=== PATIENT | female | born 1990 | race African-American/Black ===

== ENCOUNTER 2017-07-04 06:40 | Inpatient (IN) | payer OTHER ==
[2017-07-04] VITALS (12 sets, daily range): BP systolic 97–136; BP diastolic 52–66; PULSE 78–115; RESP 16–20; TEMP 98–99.1; O2SAT 94–100
[~2017-07-04 06:40] MED LIST: NAPR500 PO; Z.0.NO CURRENT MEDS
[2017-07-04] MEDS ORDERED: SODIUM CHLOR 0.9% 1000 ML INJ 1,000 ML IV ONE ×2 (07:16→18:00)
--- NOTE | 2017-07-04 07:27 | PD ---
HPI Chief Complaint: General Weakness Time Seen by Provider: 07:16 Travel History International Travel<30 days: No Contact w/Intl Traveler<30days: No Traveled to known affect area: No History of Present Illness HPI This is a 27-year-old female with no significant past medical history, presents today with complaints of exertional shortness of breath and fatigue. Patient states that she gets this when she has her period. She denies any chest pain, chest pressure. She reports a near syncopal episode 36 hours ago. The patient has no previous history of syncope or near syncope. Mom states that she in the past suffered from anemia. She states that her daughter looks more pale than she hasn't passed. Patient reports that she is not sexually active and has started her menstrual cycle today. There are no other complaints time my examination. PFSH Past Medical History Medical History: Denies Significant Hx ?: Not LMP: 07/16 Past Surgical History Surgical History: No Previous Surgery Social History Alcohol Use: Yes (SOCIAL ) Tobacco Use: No Substance Use: No Allergies-Medications (Allergen,Severity, Reaction): Coded Allergies: No Known Allergies (Verified , 07/04/17) Reported Meds & Prescriptions Reported Meds & Active Scripts Active No Active Prescriptions or Reported Medications Review of Systems Except as stated in HPI: all other systems reviewed are Neg General / Constitutional: No: Fever, Chills HENT: No: Headaches, Neck Pain Cardiovascular: No: Chest Pain or Discomfort, Palpitations Respiratory: Positive: Shortness of Breath (exertional), No: Cough Gastrointestinal: No: Nausea, Vomiting, Abdominal Pain Genitourinary: Positive: Vaginal Bleeding (patient states she started her menstrual cycle), No: Frequency, Dysuria Musculoskeletal: Positive: Weakness, No: Pain Neurologic: Positive: Weakness, Syncope, No: Dizziness, Ataxia, Headache (near syncopal 36 hours ago), Change in Mentation Physical Exam Narrative GENERAL: Well-developed well nourished female in no acute respiratory distress. SKIN: Focused skin assessment warm/dry. HEAD: Atraumatic. Normocephalic. EYES: No scleral icterus. No injection or drainage. Pale conjunctiva. ENT: No nasal bleeding or discharge. Mucous membranes pale and moist. NECK: Trachea midline. Supple. CARDIOVASCULAR: Tachycardic with a rate in the low 100s. No murmur appreciated. RESPIRATORY: No accessory muscle use. Clear to auscultation. Breath sounds equal bilaterally. GASTROINTESTINAL: Abdomen soft, non-tender, nondistended. MUSCULOSKELETAL: No obvious deformities. No clubbing. No edema. NEUROLOGICAL: Awake and alert. No obvious cranial nerve deficits. Motor grossly within normal limits. Normal speech. PSYCHIATRIC: Appropriate mood and affect; insight and judgment normal. Data Data Last Documented VS Vital Signs Date Time Temp Pulse Resp B/P (MAP) Pulse Ox O2 Delivery O2 Flow Rate FiO2 07/04/17 08:34 96 18 110/57 (74) 96 Room Air 07/04/17 06:40 99.1 Orders Orders Electrocardiogram (07/04/17 07:16) Ed Urine Pregnancytest Poc (07/04/17 07:16) Complete Blood Count With Diff (07/04/17 07:16) Comprehensive Metabolic Panel (07/04/17 07:16) Urinalysis - C+S If Indicated (07/04/17 07:16) Ecg Monitoring (07/04/17 07:16) Iv Access Insert/Monitor (07/04/17 07:16) Oximetry (07/04/17 07:16) Sodium Chloride 0.9% Flush (Ns Flush) (07/04/17 07:30) Sodium Chlor 0.9% 1000 Ml Inj (Ns 1000 M (07/04/17 07:16) Urine Culture (07/04/17 07:20) Type And Screen (07/04/17 08:22) Red Blood Cells (Rbc) (07/04/17 08:22) Blood Product Administration (07/04/17 08:22) Sodium Chlor 0.9% 250 Ml Inj (Ns 250 Ml (07/04/17 08:30) Code Status (07/04/17 09:03) Vital Signs (Adult) Q4H (07/04/17 09:03) Neuro Checks Q4H (07/04/17 09:03) Activity Oob Ad Donna (07/04/17 09:03) Intake + Output FIDELIA.QSHIFT (07/04/17 09:03) Diet Regular Basic (07/04/17 Breakfast) Sodium Chloride 0.9% Flush (Ns Flush) (07/04/17 09:15) Sodium Chloride 0.9% Flush (Ns Flush) (07/04/17 21:00) Acetaminophen (Tylenol) (07/04/17 09:15) Ondansetron Inj (Zofran Inj) (07/04/17 09:15) Case Management Consult (07/04/17 09:03) Naloxone Inj (Narcan Inj) (07/04/17 09:15) Docusate Sodium-Senna (Ledy-Colace) (07/04/17 21:00) Magnesium Hydroxide Liq (Milk Of Magnesi (07/04/17 09:15) Sennosides (Senokot) (07/04/17 09:15) Bisacodyl Supp (Dulcolax Supp) (07/04/17 09:15) Lactulose Liq (Lactulose Liq) (07/04/17 09:15) Admit To Inpatient (07/04/17 ) Inpatient Certification (07/04/17 ) Hemoglobin (Hgb) (07/04/17 13:08) Sodium Chlor 0.9% 1000 Ml Inj (Ns 1000 M (07/04/17 09:30) ^ Other Nursing Orders (07/04/17 09:17) Estrogens Conjugated (Premarin) (07/04/17 09:30) Us Pelvis Comp [employer]/Non-Preg (07/04/17 ) Admit Order (Ed Use Only) (07/04/17 10:03) Labs Laboratory Tests Test 07/04/17 07:20 07/04/17 07:25 Urine Color YELLOW Urine Turbidity HAZY Urine pH 5.5 Urine Specific [place] 1.027 Urine Protein 30 mg/dL Urine Glucose (UA) NEG mg/dL Urine Ketones TRACE mg/dL Urine Occult Blood LARGE Urine Nitrite NEG Urine Bilirubin NEG Urine Urobilinogen 2.0 MG/DL Urine Leukocyte Esterase TRACE Urine RBC /hpf Urine WBC 10 /hpf Urine Squamous Epithelial Cells 3 /hpf Urine Hyaline Casts 14 /lpf Urine Mucus MANY /lpf Microscopic Urinalysis Comment CULTURE INDICATED White Blood Count 4.4 TH/MM3 Red Blood Count 2.99 MIL/MM3 Hemoglobin 4.0 GM/DL Hematocrit 16.1 % Mean Corpuscular Volume 53.8 FL Mean Corpuscular Hemoglobin 13.5 PG Mean Corpuscular Hemoglobin Concent 25.1 % Red Cell Distribution Width 26.5 % Platelet Count 173 TH/MM3 Mean Platelet Volume 8.5 FL Neutrophils (%) (Auto) 65.2 % Lymphocytes (%) (Auto) 26.4 % Monocytes (%) (Auto) 5.9 % Eosinophils (%) (Auto) 0.6 % Basophils (%) (Auto) 1.9 % Neutrophils # (Auto) 2.9 TH/MM3 Lymphocytes # (Auto) 1.2 TH/MM3 Monocytes # (Auto) 0.3 TH/MM3 Eosinophils # (Auto) 0.0 TH/MM3 Basophils # (Auto) 0.1 TH/MM3 CBC Comment AUTO DIFF Differential Comment AUTO DIFF CONFIRMED Tear Drop Cells 1+ Ovalocytes 1+ Acanthocytes 1+ Haptoglobin 141 MG/DL Blood Urea Nitrogen 8 MG/DL Creatinine 0.77 MG/DL Random Glucose 109 MG/DL Total Protein 7.5 GM/DL Albumin 3.6 GM/DL Calcium Level 8.6 MG/DL Alkaline Phosphatase 50 U/L Aspartate Amino Transf (AST/SGOT) 24 U/L Alanine Aminotransferase (ALT/SGPT) 12 U/L Total Bilirubin 0.8 MG/DL Sodium Level 141 MEQ/L Potassium Level 4.0 MEQ/L Chloride Level 110 MEQ/L Carbon Dioxide Level 20.2 MEQ/L Anion Gap 11 MEQ/L Estimat Glomerular Filtration Rate 107 ML/MIN Iron Level 21 MCG/DL Total Iron Binding Capacity 545 MCG/DL Percent Iron Saturation 3.9 % Ferritin 4 NG/ML Lactate Dehydrogenase 272 U/L MDM Medical Decision Making Medical Screen Exam Complete: Yes Emergency Medical Condition: Yes Differential Diagnosis Anemia versus dehydration versus metabolic derangement versus cardiac arrhythmia Narrative Course 27-year-old female presents today with complaints of exertional dizziness and shortness of breath. The patient also reports generalized weakness. The patient's hemoglobin was found to be 4. Patient made it to the hospital. She' s been typed and crossed for 2 units of blood be transfused when the blood is ready. The case was discussed with Dr. Bridges, family practice resident who is agreed for the admission. The patient will be a full admit. Diagnosis Primary Impression: Symptomatic anemia Additional Impressions: Dyspnea on exertion Weakness Admitting Information Admitting Physician Requests: Admit Scripts No Active Prescriptions or Reported Meds Nestor Hadley MD Jul 04, 2017 07:27
[2017-07-04] MEDS ORDERED: SODIUM CHLORIDE 0.9% FLUSH 10 ML FLUSH IVF PRN (07:30)
[2017-07-04 08:01] LABS: BLOOD, URINE LARGE (NEG); COMMENT (UR) CULTURE INDICATED; CULTURE IF INDICATED CULTURE INDICATED; GLUCOSE,URINE NEG (NEG); HYALINE CAST, URINE 14 /lpf (RARE); KETONE, URINE TRACE mg/dL (NEG); MUCUS URINE MANY /lpf (OCC); NITRITE,URINE NEG (NEG); PH, URINE 5.5 (5.0-8.5); SQUAMOUS EPITHELIAL CELL URINE 3 /hpf (0-5); URINE COLOR YELLOW (YELLW/STRAW)
[2017-07-04 08:05] LABS: ALT (GPT) 12 U/L (10-53); ANION GAP 11 MEQ/L (5-15); AST (GOT) 24 U/L (15-37); AUTOMATED NEUTROPHIL # 2.9 TH/MM3 (1.8-7.7); BASOPHIL # 0.1 TH/MM3 (0-0.2); BASOPHIL % 1.9 % (0.0-2.0); BICARBONATE 20.2 MEQ/L (21.0-32.0); BLOOD UREA NITROGEN 8 MG/DL (7-18); CHLORIDE 110 MEQ/L (98-107); EOSINOPHIL % 0.6 % (0.0-4.0); GLOMERULAR FILTRATION RATE 107 ML/MIN (>89); LYMPH % 26.4 % (9.0-44.0); LYMPHOCYTE # 1.2 TH/MM3 (1.0-4.8); MEAN CELL VOLUME 53.8 FL (80.0-100.0); MEAN CORPUSCULAR HEMOGLOBIN 13.5 PG (27.0-34.0); MONO % 5.9 % (0.0-8.0); NEUT % 65.2 % (16.0-70.0); PLATELET COUNT 173 TH/MM3 (150-450); RED BLOOD COUNT 2.99 MIL/MM3 (4.00-5.30); RED CELL DISTRIBUTION WIDTH 26.5 % (11.6-17.2); SODIUM (NA) 141 MEQ/L (136-145); WHITE BLOOD COUNT 4.4 TH/MM3 (4.0-11.0)
[2017-07-04 08:07] LABS: ALKALINE PHOSPHATASE 50 U/L (45-117); TOTAL BILIRUBIN ADULT 0.8 MG/DL (0.2-1.0)
[2017-07-04 08:08] LABS: HEMO FLAGS AUTO DIFF; MEAN CORPUSCULAR HGB CONC 25.1 % (32.0-36.0)
[2017-07-04 08:12] LABS: HEMATOCRIT 16.1 % (35.0-46.0)
[2017-07-04] MEDS ORDERED: SODIUM CHLOR 0.9% 250 ML INJ 250 ML IV ONE (08:30)
[2017-07-04 09:07] LABS: ACANTHOCYTES 1+ (NORMAL); OVALOCYTES 1+ (NORMAL); TEARDROP RBCS 1+ (NORMAL)
[2017-07-04 09:08] LABS: SCAN/DIFF AUTO DIFF CONFIRMED
[2017-07-04] MEDS ORDERED: ACETAMINOPHEN 325 MG TAB PO PRN (09:15)
[2017-07-04] MEDS ORDERED: MAGNESIUM HYDROXIDE SUSP 30 ML CUP PO PRN (09:15)
[2017-07-04] MEDS ORDERED: LACTULOSE SYRUP 20 GM/30 ML CUP PO PRN (09:15)
[2017-07-04] MEDS ORDERED: BISACODYL 10 MG SUPP RECTAL PRN (09:15)
[2017-07-04] MEDS ORDERED: SODIUM CHLORIDE 0.9% FLUSH 10 ML FLUSH IV FLUSH PRN (09:15)
[2017-07-04] MEDS ORDERED: ONDANSETRON HCL 4 MG/2 ML VIAL IVP PRN (09:15)
[2017-07-04] MEDS ORDERED: NALOXONE HCL 0.4 MG/ML AMP IV PUSH PRN (09:15)
[2017-07-04] MEDS ORDERED: SENNOSIDES 8.6 MG TAB PO PRN (09:15)
[2017-07-04] MEDS ORDERED: ESTROGENS CONJUGATED 1.25 MG TAB PO SCH ×2 (09:30→12:00)
--- NOTE | 2017-07-04 09:34 | HHI.HP ---
[facility] Service Family Medicine Primary Care Physician No Primary Care Physician Admission Diagnosis Diagnoses: International Travel<30 Days: No Contact w/Intl Traveler<30days: No History of Present Illness Patient is a 27-year-old female with no significant PMH who presents with shortness of breath and weakness 2-3 days. She states that she has had the symptoms on-and-off for months, in conjunction with her periods. She states she currently still feels weak but no longer short of breath. The shortness of breath only occurs with exertion. She is currently in day 4 of her current period, which she has once monthly. Menstrual periods normally last 5 days, requiring approximately 10+ overnight pads per day (changing every 2 hours). She did have a syncopal versus near syncopal episode after her shower 2 days ago and felt palpitations but felt better immediately with rest. She has no abdominal pain and states she usually has only very minimal cramping during normal periods. She decided to come in to the ED today because her mother stated she did not "look right. " CARPENTERS history: G0, has never seen a CLAY MOLDER or had a vaginal exam. Never had Pap smears. She denies ever being sexually active and does not complain of any vaginal discharge. She currently states the period is currently moderate in flow as it is nearing its end. LMP started 07/01, period last month was 06/04. (Sasha Bridges MD R2) Review of Systems Constitutional: COMPLAINS OF: Fatigue, Dizziness, DENIES: Fever, Chills Eyes: DENIES: Blurred vision, Diplopia, Eye pain Ears, nose, mouth, throat: DENIES: Tinnitus, Hearing loss, Running Nose, Epistaxis Respiratory: COMPLAINS OF: Shortness of breath, DENIES: Cough, Wheezing Cardiovascular: COMPLAINS OF: Palpitations, Syncope, DENIES: Chest pain, Lower Extremity Edema Gastrointestinal: COMPLAINS OF: Nausea, DENIES: Abdominal pain, Black stools, Bloody stools, Constipation, Diarrhea, Vomiting Genitourinary: COMPLAINS OF: Abnormal vaginal bleeding, DENIES: Dysmenorrhea, Urinary frequency, Urinary incontinence, Urgency, Hematuria, Dysuria Musculoskeletal: DENIES: Muscle aches, Joint Swelling, Back pain, Neck pain Integumentary: DENIES: Pruritus, Rash, Breast masses, Breast skin changes Hematologic/lymphatic: DENIES: Bruising, Lymphadenopathy Neurologic: DENIES: Abnormal gait, Localized weakness, Paresthesias, Seizures, Poor Balance Psychiatric: DENIES: Anxiety, Confusion, Depression (Sasha Bridges MD R2) Past Family Social History Past Medical History Heavy menstrual periods menarche G0 Does not recall age of menarche Denies sexual activity ever No other medical history reported Past Surgical History Denies any previous surgeries Reported Medications Denies any medications at home (Sasha Bridges MD R2) Allergies: Coded Allergies: No Known Allergies (Verified , 07/04/17) Active Ordered Medications Inpatient Medications Acetaminophen (Tylenol) 650 mg Q4H PRN PO TEMP > 100.4; Start 07/04/17 at 09:15 Bisacodyl (Dulcolax Supp) 10 mg DAILY PRN RECTAL SEVERE CONSITIPATION; Start 07/04/17 at 09:15 Estrogens Conjugated (Premarin) 2.5 mg Q6HR PO ; Start 07/04/17 at 12:00; Status UNV Lactulose (Lactulose Liq) 30 ml DAILY PRN PO SEVERE CONSITIPATION; Start at 09:15 Magnesium Hydroxide (Milk Of Magnesia Liq) 30 ml Q12H PRN PO MILD - MODERATE CONSTIPATION; Start 07/04/17 at 09:15 Naloxone HCl (Narcan Inj) 0.4 mg UNSCH PRN IV PUSH SEE LABEL COMMENTS; Start 07/04/17 at 09:15 Ondansetron HCl (Zofran Inj) 4 mg Q6H PRN IVP NAUSEA OR VOMITING; Start at 09:15 Senna/Docusate Sodium (Ledy-Colace) 1 tab BID PO ; Start 07/04/17 at 21:00 Sennosides (Senokot) 17.2 mg Q12H PRN PO MODERATE - SEVERE CONSTIPATION; Start 07/04/17 at 09:15 Sodium Chloride 1,000 ml @ 125 mls/hr Q8H IV ; Start 07/04/17 at 09:30 Sodium Chloride (NS Flush) 2 ml BID IV FLUSH ; Start 07/04/17 at 21:00 Family History Mother: Hypertension, menorrhagia status post hysterectomy in her 30s, fibroids Siblings, father reportedly healthy Social History Denies sexual activity Never tobacco user Occasional alcohol use Never illicit drug use Works at [employer] (Sasha Bridges MD R2) Physical Exam Vital Signs Vital Signs Date Time Temp Pulse Resp B/P (MAP) Pulse Ox O2 Delivery O2 Flow Rate FiO2 07/04/17 08:34 96 18 110/57 (74) 96 Room Air 07/04/17 07:28 89 17 (87) 100 Room Air 07/04/17 06:40 99.1 115 16 136/63 (87) 100 Room Air Physical Exam GENERAL: Well-nourished, well-developed female in no apparent distress. She looks tired. SKIN: Warm and dry. No ecchymoses. Skin is normal in appearance with normal turgor. HEAD: Atraumatic. Normocephalic. EYES: PERRLA. EOMI.. No scleral icterus. No injection or drainage. + Conjunctival pallor ENT: No nasal bleeding or discharge. Mucous membranes pale, moist. No tonsillar erythema or exudate noted. NECK: Trachea midline. No JVD. No cervical lymphadenopathy noted. CARDIOVASCULAR: Regular rate and rhythm. No murmurs on auscultation. RESPIRATORY: No accessory muscle use. Clear to auscultation without wheezes, crackles, rales, rhonchi. Equal chest rise. No CVA tenderness. GASTROINTESTINAL: Abdomen soft, non-tender, nondistended. Bowel sounds normal. Hepatic and splenic margins not palpable. CLAY MOLDER: Patient declined pelvic exam. External visualization showed no lesions, + moderate to heavy continuous flow of blood from vagina. MUSCULOSKELETAL: Extremities without clubbing, cyanosis, or edema. No obvious deformities. NEUROLOGICAL: Awake and alert. Cranial nerves II through XII intact. Motor function is normal. Strength is 5/5 in extremities with maximal effort. Normal speech. PSYCHIATRIC: Appropriate mood and affect; insight and judgment normal. Laboratory Laboratory Tests Test 07/04/17 07:20 07/04/17 07:25 Urine Color YELLOW Urine Turbidity HAZY Urine pH 5.5 Urine Specific [place] 1.027 Urine Protein 30 Urine Glucose (UA) NEG Urine Ketones TRACE Urine Occult Blood LARGE Urine Nitrite NEG Urine Bilirubin NEG Urine Urobilinogen 2.0 Urine Leukocyte Esterase TRACE Urine RBC Urine WBC 10 Urine Squamous Epithelial Cells 3 Urine Hyaline Casts 14 Urine Mucus MANY Microscopic Urinalysis Comment CULTURE INDICATED White Blood Count 4.4 Red Blood Count 2.99 Hemoglobin 4.0 Hematocrit 16.1 Mean Corpuscular Volume 53.8 Mean Corpuscular Hemoglobin 13.5 Mean Corpuscular Hemoglobin Concent 25.1 Red Cell Distribution Width 26.5 Platelet Count 173 Mean Platelet Volume 8.5 Neutrophils (%) (Auto) 65.2 Lymphocytes (%) (Auto) 26.4 Monocytes (%) (Auto) 5.9 Eosinophils (%) (Auto) 0.6 Basophils (%) (Auto) 1.9 Neutrophils # (Auto) 2.9 Lymphocytes # (Auto) 1.2 Monocytes # (Auto) 0.3 Eosinophils # (Auto) 0.0 Basophils # (Auto) 0.1 CBC Comment AUTO DIFF Differential Comment AUTO DIFF CONFIRMED Tear Drop Cells 1+ Ovalocytes 1+ Acanthocytes 1+ Blood Urea Nitrogen 8 Creatinine 0.77 Random Glucose 109 Total Protein 7.5 Albumin 3.6 Calcium Level 8.6 Alkaline Phosphatase 50 Aspartate Amino Transf (AST/SGOT) 24 Alanine Aminotransferase (ALT/SGPT) 12 Total Bilirubin 0.8 Sodium Level 141 Potassium Level 4.0 Chloride Level 110 Carbon Dioxide Level 20.2 Anion Gap 11 Estimat Glomerular Filtration Rate 107 Date/Time Source Procedure Growth Status 07/04/17 07:20 Urine Clean Catch Urine Culture Pending Received (Sasha Bridges MD R2) Result Diagram: 07/04/17 0725 07/04/17724 Caprini VTE Risk Assessment Caprini VTE Risk Assessment: No/Low Risk (score <= 1) Caprini Risk Assessment Model Point Value = 1 Point Value = 2 Point Value = 3 Point Value = 5 Age 41-60 Minor surgery BMI > 25 kg/m2 Swollen legs Varicose veins or History of unexplained or recurrent spontaneous Oral contraceptives or hormone replacement Sepsis (< 1 month) Serious lung disease, including pneumonia (< 1 month) Abnormal pulmonary function Acute myocardial infarction Congestive heart failure (< 1 month) History of inflammatory bowel disease Medical patient at bed rest Age 61-74 Arthroscopic surgery Major open surgery (> 45 min) Laparoscopic surgery (> 45 min) Malignancy Confined to bed (> 72 hours) Immobilizing plaster cast Central venous access Age >= 75 History of VTE Family history of VTE Factor V Leiden Prothrombin [id number] Lupus anticoagulant Anticardiolipin antibodies Elevated serum homocysteine Heparin-induced thrombocytopenia Other congenital or acquired thrombophilia Stroke (< 1 month) Elective arthroplasty Hip, pelvis, or leg fracture Acute spinal cord injury (< 1 month) Prophylaxis Regimen Total Risk Factor Score Risk Level Prophylaxis Regimen 0-1 Low Early ambulation 2 Moderate Order ONE of the following: *Sequential Compression Device (SCD) *Heparin 5000 units SQ BID 3-4 Higher Order ONE of the following medications: *Heparin 5000 units SQ TID *Enoxaparin/Lovenox 40 mg SQ daily (WT < 150 kg, CrCl > 30 mL/min) *Enoxaparin/Lovenox 30 mg SQ daily (WT < 150 kg, CrCl > 10-29 mL/min) *Enoxaparin/Lovenox 30 mg SQ BID (WT < 150 kg, CrCl > 30 mL/min) AND/OR *Sequential Compression Device (SCD) 5 or more Highest Order ONE of the following medications: *Heparin 5000 units SQ TID (Preferred with Epidurals) *Enoxaparin/Lovenox 40 mg SQ daily (WT < 150 kg, CrCl > 30 mL/min) *Enoxaparin/Lovenox 30 mg SQ daily (WT < 150 kg, CrCl > 10-29 mL/min) *Enoxaparin/Lovenox 30 mg SQ BID (WT < 150 kg, CrCl > 30 mL/min) AND *Sequential Compression Device (SCD) (Sasha Bridges MD R2) Assessment and Plan Assessment and Plan 27-year-old otherwise healthy female who presents with chronic menorrhagia and symptomatic anemia likely due to menorrhagia. She is status post 1 L bolus in the ED with IV access, type and cross, 2 units PRBC ordered. Initial labs showing hemoglobin 4.0/hematocrit 16.1. Platelet count and white count within normal limits but at the lower limits of normal. CMP collected and grossly within normal limits. Urine showing ketones, trace leukocyte esterase, large blood. No obvious signs of urinary infection but culture is pending. Patient will be admitted to inpatient for fluid resuscitation, blood transfusion , further workup and management of menorrhagia. Patient was seen and discussed with Dr. Torres, will be discussed with Dr. Nuñez Code Status Full Code (Sasha Bridges MD R2) Attending Attestation The patient has been seen and examined. The chart and all resident notes have been reviewed. I agree that inpatient care is appropriate and that a two midnight stay is expected for the reasons documented in the resident history and physical. I have discussed this with the resident and certify the resident s order for inpatient admission. Patient seen and examined. Case reviewed and discussed Please refer to resident H&P for further details regarding HPI, ROS, PMH, SurgHx , FH and SocHx In summary, patient is a 27yoF with a history of anemia and menorrhagia presenting after multiple syncopal episodes. She is currently menstruating and presents with a hgb of 4 She reports shortness of breath and severe STEPHEN as well as fatigue over the last month. GENERAL: pleasant wdwn female resting in bed SKIN: Warm and dry. Pallor. tattoos. HEAD: Normocephalic. AT EYES: No scleral icterus. No injection or drainage. +conjunctival pallor. NECK: Supple, trachea midline. No JVD or lymphadenopathy. CARDIOVASCULAR: Tachycardic rate and reg rhythm with 1-2/6 Atif, no gallops or rubs. RESPIRATORY: Breath sounds equal and clear bilaterally. No accessory muscle use. GASTROINTESTINAL: Abdomen soft, non-tender, nondistended. normal active BS. No rebound MUSCULOSKELETAL: No cyanosis, or edema. No calf tenderness BACK: Nontender without obvious deformity. No CVA tenderness. NEURO: Awake and alert. Normal speech. CN grossly intact. A/P: 27yoF admitted with: Severe symptomatic anemia Blood loss anemia Menorrhagia Shortness of breath Fibroids Hyperglycemia Tachycardia Transfuse Post-transfusion hgb peripheral smear Iron studies before transfusion Coag profile Monitor bleeding Pelvic u/s CLAY MOLDER consultation Hematology consultation IVF Patient seen and examined. Case reviewed and discussed Agree with plan of care as discussed with me and documented in the resident note. (Anna Nuñez MD) Problem List: (1) Symptomatic anemia ICD Codes: D64.9 - Anemia, unspecified Plan: Patient presents with a complaints of dyspnea on exertion, weakness, near syncopal episode Patient is hemodynamically stable with hemoglobin 4.0, suggesting etiology is chronic menorrhagia. Other differential diagnoses must lower given no abdominal pain, UPT was negative. Will treat for menorrhagia at this time. * Admit inpatient * 2 large-bore IVs * IV fluid resuscitation * Monitor vital signs closely for signs of hemodynamic instability, rebolus PRN * Type and cross for 2 unit PRBCs, monitor H&H every 4 hours for now, will repeat blood transfusion PRN * Monitor BMP for any signs of organ dysfunction or electrolyte abnormality related to transfusions * Ultrasound of the pelvis to assess for fibroids or other structural abnormality * Premarin 2.5 mg by mouth q 6 hours to treat uterine bleeding * Consider CLAY MOLDER consult (2) Menorrhagia with regular cycle ICD Codes: N92.0 - Excessive and frequent menstruation with regular cycle Plan: Plan as above. (3) Fluids/Electrolytes/Nutrition/Prophylaxis Plan: Fluids: 1 L bolus in ED. NS @ 125ml/hr Electrolytes: monitor and replete as needed Nutrition: Regular diet DVT Prophylaxis: Early ambulation. Low risk for DVT. Actively bleeding. Bilateral SCDs if sedentary GI Prophylaxis: not indicated (Sasha Bridges MD R2) Physician Certification 2 Midnight Certification Type: Admission for Inpatient Services Order for Inpatient Services The services are ordered in accordance with Medicare regulations or non- Medicare payer requirements, as applicable. In the case of services not specified as inpatient-only, they are appropriately provided as inpatient services in accordance with the 2-midnight benchmark. Estimated LOS (days): 2 days is the estimated time the patient will need to remain in the hospital, assuming treatment plan goals are met and no additional complications. Post-Hospital Plan: Home (Sasha Bridges MD R2) Sasha Bridges MD R2 Jul 04, 2017 09:34 Anna Nuñez MD Jul 04, 2017 17:44
[2017-07-04] MEDS: SODIUM CHLOR 0.9% 1000 ML INJ 1,000 ML IV SCH (11:28)
--- NOTE | 2017-07-04 11:32 | RADRPT ---
EXAM DATE/TIME: 07/04/2017 09:17 [place] COMPARISON: No previous studies available for comparison. INDICATIONS : Bleeding. MEDICAL HISTORY : Anemia. Shortness of breath. Dizziness with menstration. SURGICAL HISTORY : None. ENCOUNTER: Initial ACUITY: 3 days PAIN SCORE: 0/10 LOCATION: Bilateral pelvis MEASUREMENTS: UTERUS: 10.5 x 9.5 x 9.5 cm cm ENDOMETRIAL STRIPE: RIGHT OVARY: 3.6 x 2.4 x 1.3 cm LEFT OVARY: 4.8 x 1.8 x 1.6 cm cm FINDINGS: UTERUS: There is a large heterogeneous hypoechoic mass measuring up to 7.5 x 9.5 x 9.5 cm in the fundal regio n. RIGHT OVARY: There is a complex hypoechoic 1.2 x 1.3 x 1.1 cm mass with no internal color flow. LEFT OVARY: Ovary contains no mass or significant cystic lesion. MISCELLANEOUS: No free fluid. CONCLUSION: 1. Large heterogeneous hypoechoic mass in the uterine fundus consistent with a leiomyoma. 2. Complex cyst in the right ovary. Matthew Estrella MD on July 04, 2017 at 11:27 Board Certified Radiologist. This report was verified electronically.
[2017-07-04] MEDS ORDERED: IBUPROFEN 600 MG TAB PO PRN (14:00)
[2017-07-04] MEDS: ESTROGENS CONJUGATED 25 MG/5 ML VIAL IV PUSH SCH ×2 (14:10→21:49)
--- NOTE | 2017-07-04 14:36 | EKG ---
Date Performed: 07/04/2017 Time Performed: 07:28:38 PTAGE: 27 years EKG: Sinus rhythm POSSIBLE RIGHT ATRIAL ENLARGEMENT BORDERLINE ECG NO PREVIOUS TRACING DOCTOR: Moe Page Interpretating Date/Time 07/04/2017 14:35:20
[2017-07-04 17:42] LABS: TRANSFERRIN IRON PROFILE 389 MG/DL (200-360)
[2017-07-04 18:25] LABS: APTT (PATIENT) 22.4 SEC (24.3-30.1); INTERNATIONAL NORMALIZED RATIO 0.9 RATIO; PROTHROMBIN TIME - PATIENT 10.4 SEC (9.8-11.6)
[2017-07-04 21:00] LABS: REVIEW FLAG FINAL
[2017-07-04] MEDS: DOCUSATE SODIUM 50 MG/SENNA 8.6 MG TAB PO SCH (21:00)
--- NOTE | 2017-07-04 21:06 | MB ---
cc: MARY CARMEN BUTT MD DATE OF CONSULTATION 07/04/17 1988 CHIEF COMPLAINT Anemia. HISTORY OF PRESENT ILLNESS Ms. Cazares is a 27-year-old lady with heavy periods who presents to the emergency room with symptomatic anemia. She reports that her period started on Saturday and she passed out in the bathroom on Saturday. She reports that she did not want to go to the hospital at that time, however, on she was due to go to work and was still feeling poorly so she went in to our emergency room for evaluation. She states that her menstrual cycles have been heavy for at least the past several years. She reports that her periods usually last five days and, on the second and third days of her period, she has heavy bleeding that require her to change her pad and tampon about every hour and prevent her from going to work. She reports that she has clots with her periods. She states that she has had the symptoms of fatigue and shortness of breath and weakness on and off for months and it usually always gets worse around the time that she has her periods. When she came into the emergency room, CBC revealed a white blood cell count of 4.4, hemoglobin of 4.0, platelet count of 173,000 with an MCV of 53.8. A recheck of her hemoglobin revealed a hemoglobin of 3.6. Coags within normal limits. Renal function within normal limits. Liver function within normal limits. Iron studies revealed an iron of 21, a total iron-binding capacity of 545. Percent sat of 3.89 and a ferritin of 4. She had a pelvic ultrasound performed which showed a large heterogeneous hypoechoic mass in the uterine fundus consistent with a leiomyoma and a complex cyst in the right ovary. She is ordered for red blood cells and is currently receiving her first unit. PAST MEDICAL HISTORY None. PAST SURGICAL HISTORY None. FAMILY HISTORY Mother with a history of fibroids. SOCIAL HISTORY No tobacco or illegal drug use. She works at a nursing facility rehab facility. She reports occasional social ethyl alcohol use. ALLERGIES No known drug allergies. MEDICATIONS No home medications. REVIEW OF SYSTEMS GENERAL: Positive for weakness and fatigue : Positive for heavy periods. RESPIRATORY: Positive for shortness of breath. All other review of systems negative. PHYSICAL EXAMINATION GENERAL: Well-developed, well-nourished lady in no distress. HEAD: normocephalic, atraumatic HEENT: Eyes with conjunctival pallor. Mouth with pallor of the mucous membranes. Oropharynx clear. NECK: supple with no palpable lymphadenopathy CARDIOVASCULAR: Regular rate and rhythm with no murmurs. RESPIRATORY: Clear to auscultation bilaterally. GI: Soft, nontender, nondistended with bowel sounds present. : Normal muscle tone. SKIN: No rashes or bruising. NEUROLOGIC: Nonfocal PSYCHIATRIC: Appropriate mood and affect. ASSESSMENT AND PLAN 1. Iron deficiency anemia: acute on chronic secondary to menstrual blood loss. Suspect that the patient has had chronic low hemoglobin that became exacerbated with her most recent period. The only previous CBC that we have in our system showed a hemoglobin of 11.3 from 2006, MCV at that time was 70.9. Agree with blood transfusion. Recommend checking a post transfusion CBC and transfusing to a hemoglobin of greater than seven. She will likely need 4 units to reach this goal. We will also check haptoglobin, reticulocyte count and peripheral blood smear. Will plan to give IV iron while inpatient. Will adjust dose of iron depending on how many units of packed red blood cells she receives. We will continue to follow. She will also need to be on oral iron therapy outpatient. 2. Heavy menstrual bleeding. Gynecology consulted and will see her this hospital stay. MD JAMIA Lucas/ /7:25 PM /8:47 PM LISA
[2017-07-04] MEDS: SODIUM CHLORIDE 0.9% FLUSH 10 ML FLUSH IV FLUSH SCH (21:49)
[2017-07-05] VITALS (10 sets, daily range): BP systolic 101–115; BP diastolic 56–69; PULSE 59–85; RESP 16–20; TEMP 97.5–99.2; O2SAT 98–100
--- NOTE | 2017-07-05 00:49 | PD.CONS ---
History & Physical H&P RESEARCH PROJECT MANAGER consultation Patient is a 27-year-old black female G0 who presents with profound anemia that is very likely secondary to heavy periods long-term, her hemoglobin is 4 hematocrit 16 and she is currently getting her 2 units of blood. Probably give her another 2 units of blood A Ctr. She is now on her last day or 2 and these are regular monthly events lasting about 5-6 days and a second & third days are very heavy. She's never taken control pills or any hormonal therapy of any kind. She is nulliparous and is not sexually active but says that some day she would like to have children,, she has no major medical problems. However she chronically has been anemic long-term had shortness of breath headaches dizziness and general malaise for months. She had ultrasound done here today which shows a large fibroid 7 x 9 cm and the uterus was basically is replacing the uterine cavity in the fundus, patient ovaries and adnexa all within normal limits Impression--hypermenorrhea secondary to fibroid uterus Plan-will place on by mouth estrogen while here in the hospital the next day or 2 and then start on low-dose control pill on this coming Saturday 2 days from now, this should allow her periods to have better control less volume and may provide all of care she really needs all the short-term, she needs to be on iron routine basis po, at some point the fibroid will need to be addressed as it may become clinically symptomatic again or some point she's thinking of trying to get and I think the fibroid will need to be addressed at that point with possible myomectomy or hysteroscopic resection, these options were discussed with the patient. Also other medical options could be intrauterine device or possibly Depo-Provera, the patient seemed interested in taking the control pill and so we'll proceed with that the easiest option at this time Mateo Blackman II, MD Jul 05, 2017 00:49
[2017-07-05] MEDS: ESTROGENS CONJUGATED 25 MG/5 ML VIAL IV PUSH SCH ×3 (01:00→12:24)
[2017-07-05] MEDS: SODIUM CHLOR 0.9% 1000 ML INJ 1,000 ML IV SCH ×2 (01:29→14:38)
[2017-07-05 02:19] LABS: AUTOMATED NEUTROPHIL # 3.2 TH/MM3 (1.8-7.7); BASOPHIL # 0.1 TH/MM3 (0-0.2); BASOPHIL % 2.1 % (0.0-2.0); EOSINOPHIL # 0.1 TH/MM3 (0-0.4); EOSINOPHIL % 1.1 % (0.0-4.0); LYMPH % 28.4 % (9.0-44.0); LYMPHOCYTE # 1.5 TH/MM3 (1.0-4.8); MEAN CELL VOLUME 62.6 FL (80.0-100.0); MEAN CORPUSCULAR HEMOGLOBIN 18.3 PG (27.0-34.0); MEAN CORPUSCULAR HGB CONC 29.2 % (32.0-36.0); MONO % 4.9 % (0.0-8.0); NEUT % 63.5 % (16.0-70.0); PLATELET COUNT 107 TH/MM3 (150-450); RED BLOOD COUNT 3.11 MIL/MM3 (4.00-5.30); RED CELL DISTRIBUTION WIDTH 35.7 % (11.6-17.2); WHITE BLOOD COUNT 5.1 TH/MM3 (4.0-11.0)
[2017-07-05 02:20] LABS: HEMO FLAGS AUTO DIFF
[2017-07-05 02:23] LABS: HEMATOCRIT 19.5 % (35.0-46.0)
[2017-07-05 02:30] LABS: BICARBONATE 22.3 MEQ/L (21.0-32.0); POTASSIUM 3.6 MEQ/L (3.5-5.1)
[2017-07-05 02:44] LABS: SCAN/DIFF AUTO DIFF CONFIRMED
[2017-07-05 02:45] LABS: ACANTHOCYTES OCC (NORMAL); PLATELET ESTIMATE SMEAR LOW (NORMAL); PLATELET MORPHOLOGY NORMAL (NORMAL)
[2017-07-05] MEDS ORDERED: SODIUM CHLOR 0.9% 250 ML INJ 250 ML IV ONE ×2 (03:00→17:30)
[2017-07-05] MEDS: SODIUM CHLORIDE 0.9% FLUSH 10 ML FLUSH IV FLUSH SCH ×2 (09:00→20:05)
[2017-07-05] MEDS: DOCUSATE SODIUM 50 MG/SENNA 8.6 MG TAB PO SCH ×2 (09:00→20:05)
[2017-07-05] MEDS ORDERED: ESTROPIPATE 1.5 MG PO SCH ×2 (09:00)
--- NOTE | 2017-07-05 13:35 | HHI.FPPN ---
Subjective Remarks Patient was seen and examined this morning. She states she feels much better today. She denies any symptoms and has been related to the bathroom in the room without dizziness, shortness of breath, or other symptoms. She has not eaten breakfast but did eat dinner last night. She states her menstrual flow is decreased from yesterday about 50%. She estimates she is using about 10-12 pads since admission. (Sasha Bridges MD R2) Objective Vitals Vital Signs Date Time Temp Pulse Resp B/P (MAP) Pulse Ox O2 Delivery O2 Flow Rate FiO2 07/05/17 12:51 98.4 59 19 101/65 (77) 98 07/05/17 08:58 97.6 63 19 108/62 (77) 100 07/05/17 05:00 98.2 85 16 108/60 100 07/05/17 04:44 97.8 82 16 107/56 100 07/05/17 00:00 98.2 73 20 110/64 (79) 100 07/04/17 22:05 98.2 78 16 107/58 100 07/04/17 21:44 98.0 80 16 97/52 100 07/04/17 20:00 98.0 82 17 100/66 (77) 100 07/04/17 18:50 98.9 94 19 104/53 (70) 100 07/04/17 17:08 98.7 100 16 104/53 (70) 100 07/04/17 17:05 98.6 100 16 104/53 100 07/04/17 16:42 98.7 100 16 98/54 100 07/04/17 16:09 98.7 103 16 104/55 100 I/O 07/04/17 07/04/17 07/04/17 07/05/17 07/05/17 07/05/17 07:00 15:00 23:00 07:00 15:00 23:00 Intake Total 1000 ml 640 ml 640 ml 400 ml Balance 1000 ml 640 ml 640 ml 400 ml Intake Oral 240 ml 240 ml IV Total 1000 ml Packed Cells 400 ml 400 ml 400 ml # Voids 1 2 # Sanitary Pads 1 Pads (Sasha Bridges MD R2) Result Diagram: 07/05/17 0148 07/05/17 0148 Imaging Last Impressions Pelvis Ultrasound 07/04/17 0000 Signed Impressions: Service Date/Time: June 09:17 - CONCLUSION: 1. Large heterogeneous hypoechoic mass in the uterine fundus consistent with a leiomyoma. 2. Complex cyst in the right ovary. Matthew Estrella MD Objective Remarks GENERAL: Well-nourished, well-developed female in no apparent distress. She appears more energetic today SKIN: Warm and dry. No ecchymoses. Skin is normal in appearance with normal turgor. HEAD: Atraumatic. Normocephalic. EYES: PERRLA. EOMI.. No scleral icterus. No injection or drainage. Improved conjunctival pallor today ENT: No nasal bleeding or discharge. Mucous membranes pale, moist. No tonsillar erythema or exudate noted. NECK: Trachea midline. No JVD. No cervical lymphadenopathy noted. CARDIOVASCULAR: Regular rate and rhythm. No murmurs on auscultation. RESPIRATORY: No accessory muscle use. Clear to auscultation without wheezes, crackles, rales, rhonchi. Equal chest rise. No CVA tenderness. GASTROINTESTINAL: Abdomen soft, non-tender, nondistended. Bowel sounds normal. Hepatic and splenic margins not palpable. SERVICE ATTENDANT: Deferred MUSCULOSKELETAL: Extremities without clubbing, cyanosis, or edema. No obvious deformities. NEUROLOGICAL: Awake and alert. Cranial nerves II through XII intact. Grossly normal motor and strength function Normal speech. PSYCHIATRIC: Appropriate mood and affect; insight and judgment normal. Medications and IVs Inpatient Medications Acetaminophen (Tylenol) 650 mg Q4H PRN PO TEMP > 100.4; Start 07/04/17 at 09:15 Bisacodyl (Dulcolax Supp) 10 mg DAILY PRN RECTAL SEVERE CONSITIPATION; Start 07/04/17 at 09:15 Estrogens Conjugated (Premarin Inj) 25 mg Q6H IV PUSH Last administered on 07/05 12:24; Start 07/04/17 at 13:00; Stop 07/05/17 at 07:01; Status DC Estrogens Conjugated (Premarin) 2.5 mg Q6HR PO ; Start 07/04/17 at 12:00; Stop 07/04/17 at 12:00; Status DC Estropipate (Ortho-Est) 3 mg DAILY PO Last administered on 07/05/17 09:53; Start 07/05/17 at 09:00 Ibuprofen (Motrin) 600 mg Q8HR PRN PO PAIN 1-10; Start 07/04/17 at 14:00 Lactulose (Lactulose Liq) 30 ml DAILY PRN PO SEVERE CONSITIPATION; Start at 09:15 Magnesium Hydroxide (Milk Of Magnesia Liq) 30 ml Q12H PRN PO MILD - MODERATE CONSTIPATION; Start 07/04/17 at 09:15 Naloxone HCl (Narcan Inj) 0.4 mg UNSCH PRN IV PUSH SEE LABEL COMMENTS; Start 07/04/17 at 09:15 Ondansetron HCl (Zofran Inj) 4 mg Q6H PRN IVP NAUSEA OR VOMITING; Start at 09:15 Senna/Docusate Sodium (Ledy-Colace) 1 tab BID PO ; Start 07/04/17 at 21:00 Sennosides (Senokot) 17.2 mg Q12H PRN PO MODERATE - SEVERE CONSTIPATION; Start 07/04/17 at 09:15 Sodium Chloride 250 ml @ 15 mls/hr ONCE ONCE IV Last administered on t 04:48; Start 07/05/17 at 03:00; Stop 07/05/17 at 19:39 Sodium Chloride (NS Flush) 2 ml BID IV FLUSH Last administered on 07/04/17 21: 49; Start 07/04/17 at 21:00 (Sasha Bridges MD R2) A/P Assessment and Plan 27-year-old otherwise healthy female who presents with chronic menorrhagia and symptomatic anemia likely due to menorrhagia. She is clinically improved since admission. Patient is status post resuscitation including 3 units PRBC and IV fluids. H&H has improved. Pending IV iron infusion per hematology. Discharge Planning Likely discharge tomorrow, and she is still pending IV iron, PRBCs, monitoring H &H trending She will need follow-up with SERVICE ATTENDANT and hematology as outpatient (Sasha Bridges MD R2) Attending Attestation Patient seen and examined. Case reviewed and discussed Agree with plan of care as discussed with me and documented in the resident note. Coordination of discharge services, including, but not limited to coordination of care, patient education, prescriptions and follow-up assumed >30 minutes. (Anna Nuñez MD) Problem List: (1) Symptomatic anemia ICD Codes: D64.9 - Anemia, unspecified Status: Acute Plan: Post infusion H&H 7.0/22 after 3 units PRBCs. She'll bleeding has reportedly improved. Patient has declined vaginal exams and hospitalization. Continue to monitor H&H every 8 hours at this time. She needs close follow-up with you and given large fibroid likely causative for her menorrhagia. Hospital course: Patient presented with a complaints of dyspnea on exertion, weakness, near syncopal episode Patient hemodynamically stable with hemoglobin 4.0, suggesting etiology is chronic menorrhagia. * Admit inpatient * 2 large-bore IVs * IV fluid resuscitation * Monitor vital signs closely for signs of hemodynamic instability, rebolus PRN * Type and cross for 2 unit PRBCs on admission, monitor H&H every 4 hours, 1 additional unit on 07/05 * BMP wnl * Ultrasound of the pelvis showing large fibroid 10.5 x 9.5 x 9.5cm * Premarin 2.5mg by mouth q6 hours x 3 doses * SERVICE ATTENDANT consulted: recommended starting PO estrogen as inpt, continue as outpt, SERVICE ATTENDANT follow up for fibroid management * Hematology consulted: recommended further studies, haptoglobin, smear, IV iron infusion as inpt (2) Menorrhagia with regular cycle ICD Codes: N92.0 - Excessive and frequent menstruation with regular cycle Plan: Plan as above. (3) Fluids/Electrolytes/Nutrition/Prophylaxis Plan: Fluids: 1L bolus in ED. NS @ 125ml/hr, d/c'd. PO hydration. Electrolytes: monitor and replete as needed Nutrition: Regular diet DVT Prophylaxis: Ambulating. Low risk for DVT, will monitor. Actively bleeding. Bilateral SCDs if sedentary. GI Prophylaxis: not indicated (Sasha Bridges MD R2) Sasha Bridges MD R2 Jul 05, 2017 13:35 Anna Nuñez MD Jul 08, 2017 12:27
[2017-07-05 13:51] LABS: REVIEW FLAG FINAL
[2017-07-05] MEDS ORDERED: FERR325T20 PO (17:59)
[2017-07-05] MEDS ORDERED: SPRI28TA PO (17:59)
--- NOTE | 2017-07-05 18:00 | HHI.DCPOC ---
Discharge Care Plan Diagnosis: (1) Symptomatic anemia (2) Menorrhagia with regular cycle Goals to Promote Your Health * To prevent worsening of your condition and complications * To maintain your health at the optimal level Directions to Meet Your Goals Take your medications as prescribed Follow your dietary instruction Follow activity as directed Keep your appointments as scheduled Take your immunizations and boosters as scheduled If your symptoms worsen call your PCP, if no PCP go to Urgent Care Center or Emergency Room Smoking is Dangerous to Your Health. Avoid second hand smoke Call the 24-hour hour crisis hotline for domestic abuse at Sasha Bridges MD R2 Jul 05, 2017 18:00
--- NOTE | 2017-07-05 18:32 | PD.ONC.PN ---
Subjective Subjective Remarks Patient reports that she is back to her baseline and that her symptoms from yesterday have much improved. Objective Data Date Time Temp Pulse Resp B/P (MAP) Pulse Ox O2 Delivery O2 Flow Rate FiO2 07/05/17 16:56 99.2 76 19 115/56 (75) 100 07/05/17 12:51 98.4 59 19 101/65 (77) 98 07/05/17 08:58 97.6 63 19 108/62 (77) 100 07/05/17 05:00 98.2 85 16 108/60 100 07/05/17 04:44 97.8 82 16 107/56 100 07/05/17 00:00 98.2 73 20 110/64 (79) 100 07/04/17 22:05 98.2 78 16 107/58 100 07/04/17 21:44 98.0 80 16 97/52 100 07/04/17 20:00 98.0 82 17 100/66 (77) 100 07/04/17 18:50 98.9 94 19 104/53 (70) 100 07/05/17 07/05/17 07/05/17 07:00 15:00 23:00 Intake Total 640 ml 400 ml Balance 640 ml 400 ml Result Diagram: 07/05/17 1300 07/05/17 0148 Laboratory Results Laboratory Tests Test 07/05/17 01:48 07/05/17 13:00 White Blood Count 5.1 TH/MM3 Red Blood Count 3.11 MIL/MM3 Hemoglobin 5.7 GM/DL 7.0 GM/DL Hematocrit 19.5 % 22.0 % Mean Corpuscular Volume 62.6 FL Mean Corpuscular Hemoglobin 18.3 PG Mean Corpuscular Hemoglobin Concent 29.2 % Red Cell Distribution Width 35.7 % Platelet Count 107 TH/MM3 Mean Platelet Volume 8.5 FL Neutrophils (%) (Auto) 63.5 % Lymphocytes (%) (Auto) 28.4 % Monocytes (%) (Auto) 4.9 % Eosinophils (%) (Auto) 1.1 % Basophils (%) (Auto) 2.1 % Neutrophils # (Auto) 3.2 TH/MM3 Lymphocytes # (Auto) 1.5 TH/MM3 Monocytes # (Auto) 0.3 TH/MM3 Eosinophils # (Auto) 0.1 TH/MM3 Basophils # (Auto) 0.1 TH/MM3 CBC Comment AUTO DIFF Differential Comment AUTO DIFF CONFIRMED Platelet Estimate LOW Platelet Morphology Comment NORMAL Acanthocytes OCC Blood Urea Nitrogen 8 MG/DL Creatinine 0.54 MG/DL Random Glucose 80 MG/DL Calcium Level 7.7 MG/DL Sodium Level 142 MEQ/L Potassium Level 3.6 MEQ/L Chloride Level 113 MEQ/L Carbon Dioxide Level 22.3 MEQ/L Anion Gap 7 MEQ/L Estimat Glomerular Filtration Rate 162 ML/MIN Culture Results Microbiology Date/Time Source Procedure Growth Status 07/04/17 07:20 Urine Clean Catch Urine Culture - Preliminary NO GROWTH IN 24 HOURS. Resulted Administered Medications Medications (Trade) Dose Ordered Sig/Shun Route PRN Reason Start Time Stop Time Status Last Admin Dose Admin Sodium Chloride (NS Flush) 2 ml BID IV FLUSH 07/04/17 21:00 07/04/17 21:49 Estropipate (Ortho-Est) 3 mg DAILY PO 07/05/17 09:00 07/05/17 09:53 Sodium Chloride 250 ml @ 15 mls/hr ONCE ONCE IV 07/05/17 03:00 07/05/17 19:39 07/05/17 04:48 Objective Remarks GENERAL: Well-nourished, well-developed patient. SKIN: Warm and dry. HEAD: Normocephalic. EYES: No scleral icterus. No injection or drainage. NECK: Supple, trachea midline. No JVD or lymphadenopathy. LYMPHATIC: No adenopathy. CARDIOVASCULAR: Regular rate and rhythm without murmurs. RESPIRATORY: Breath sounds equal bilaterally. No accessory muscle use. GASTROINTESTINAL: Abdomen soft, non-tender, nondistended. EXTREMITIES: No cyanosis, or edema. NEUROLOGICAL: No obvious focal deficit. Awake, alert, and oriented x3. PSYCHIATRIC: Appropriate mood and affect; insight and judgment normal. Assessment/Plan Assessment 1. Iron deficiency anemia due to menstrual blood loss: s/p 3 units of PRBC and will plan to transfuse a fourth unit today. With the packed red blood cells she will receive a total of 1000 mg of elemental iron. Will hold on IV iron. Agree with ferrous sulfate 325 mg BID. She should take until iron stores are replete. Anticipate over the course of the next several months that her menstrual bleeding will decrease and her body will be able to maintain iron stores. Can give additional IV iron in clinic if this is needed. She denies any GI symptoms such as constipation diarrhea or blood on stool. Ordered stool for occult blood to ensure that GI loss is not contributing to current anemia. Will request outpatient follow up in hematology clinic upon hospital discharge. 2. Menstrual bleeding: Pelvic ultrasound reveals uterine fibroid. Started on control pills today. She reports that her bleeding has slowed. She will follow up with gynecology in the outpatient setting. Marcela Santo MD Jul 05, 2017 18:32
[2017-07-05 23:25] LABS: REVIEW FLAG FINAL
[2017-07-06] MEDS ORDERED: FERROUS SULFATE 325 MG (65 MG ELEMENTAL IRON) TAB PO SCH (06:00)
== END 2017-07-06 00:25 | disposition home or self-care (01) | DRG 812 ==
LOC: NEPE 06:40 → NEDA 10:07 → NEPFCDU 13:02 → HOCB 17:49
PROVIDERS: ADMIT Family Medicine; ATTEND Family Medicine
PROC: 30233N1 Transfusion of Nonautologous Red Blood Cells into Peripheral Vein, Percutaneous Approach (ICD-10-PCS; principal; 2017-07-04)
DX: D50.0 Iron deficiency anemia secondary to blood loss (chronic) (principal); D25.9 Leiomyoma of uterus, unspecified; N92.0 Excessive and frequent menstruation with regular cycle; N83.201 Unspecified ovarian cyst, right side
CPT/HCPCS: 36430; 76856; 76937; 80048; 80053; 81001; 82728; 83010; 83540; 83550; 83615; 84703; 85014; 85018; 85025; 85044; 85060; 85610; 85730; 86850; 86900; 86901; 86920; 87086; 93005; 96360; J1410; J7030; J7050; P9016

== ENCOUNTER → 2017-10-15 | Outpatient (CLI) | payer OTHER ==
[~2017-10-15] MED LIST changes: +FERR325T20 PO; -NAPR500 PO; +SPRI28TA PO; -Z.0.NO CURRENT MEDS
== END ==
LOC: CPRE 10:12
PROVIDERS: ATTEND Obstetrics & Gynecology
DX: Z01.818 Encounter for other preprocedural examination (principal)

== ENCOUNTER 2017-10-23 08:00 | Inpatient (IN) | payer OTHER ==
[~2017-10-23] VITALS: Ht 167.6 cm; Wt 89.8 kg
[2017-11-13] MEDS ORDERED: CHLORHEXIDINE GLUCONATE 2 % 1 PACK (2 CLOTHS) TOPICAL PRN (06:00)
[2017-11-13] MEDS ORDERED: POVIDONE IODINE 5% (ANTISEPSIS KIT) 4 APPLICATIONS EACH NARE PRN (06:00)
[2017-11-13] MEDS ORDERED: METOPROLOL TARTRATE 25 MG TAB PO PRN (06:00)
[2017-11-13] MEDS ORDERED: INSULIN HUMAN REGULAR 1,000 UNITS/10 ML VIAL SQ PRN (06:00)
[2017-11-13] MEDS ORDERED: ceFAZolin 2 GM PREMIX 50 ML IV SCH (06:00)
[2017-11-13] MEDS ORDERED: SODIUM CHLORID 0.9% 500 ML IV PRN (06:00)
[2017-11-13] MEDS ORDERED: LACTATED RINGER'S 1000 ML IV PRN (06:00)
[2017-11-13] MEDS ORDERED: APREPITANT 40 MG CAP PO SCH (06:00)
[2017-11-13 07:12] LABS: AUTOMATED NEUTROPHIL # 5.2 TH/MM3 (1.8-7.7); BASOPHIL % 0.5 % (0.0-2.0); BILIRUBIN, URINE NEG (NEG); BLOOD, URINE SMALL (NEG); EOSINOPHIL # 0.1 TH/MM3 (0-0.4); EOSINOPHIL % 0.8 % (0.0-4.0); GLUCOSE,URINE NEG (NEG); HEMATOCRIT 34.1 % (35.0-46.0); HEMOGLOBIN 10.9 GM/DL (11.6-15.3); KETONE, URINE NEG (NEG); LYMPH % 17.2 % (9.0-44.0); LYMPHOCYTE # 1.2 TH/MM3 (1.0-4.8); MEAN CELL VOLUME 72.7 FL (80.0-100.0); MEAN CORPUSCULAR HEMOGLOBIN 23.3 PG (27.0-34.0); MEAN PLATELET VOLUME 8.2 FL (7.0-11.0); MONO % 6.2 % (0.0-8.0); MONOCYTE # 0.4 TH/MM3 (0-0.9); MUCUS URINE FEW /lpf (OCC); NEUT % 75.3 % (16.0-70.0); NITRITE,URINE NEG (NEG); PH, URINE 5.5 (5.0-8.5); PLATELET COUNT 339 TH/MM3 (150-450); RED BLOOD COUNT 4.69 MIL/MM3 (4.00-5.30); RED CELL DISTRIBUTION WIDTH 15.1 % (11.6-17.2); SQUAMOUS EPITHELIAL CELL URINE 2 /hpf (0-5); URINE COLOR YELLOW (YELLW/STRAW); URINE LEUKOCYTE ESTERASE TRACE (NEG); WHITE BLOOD COUNT 6.9 TH/MM3 (4.0-11.0)
[2017-11-13 07:25] LABS: BICARBONATE 23.6 MEQ/L (21.0-32.0); BLOOD UREA NITROGEN 7 MG/DL (7-18); CHLORIDE 109 MEQ/L (98-107); CREATININE 0.67 MG/DL (0.50-1.00); GLOMERULAR FILTRATION RATE 126 ML/MIN (>89); GLUCOSE,RANDOM 93 MG/DL (74-106); SODIUM (NA) 140 MEQ/L (136-145)
[2017-11-13] MEDS ORDERED: FAMOTIDINE 20 MG/2 ML VIAL ONE (07:28)
[2017-11-13] MEDS ORDERED: ACETAMINOPHEN 1000 MG/100 ML 100 ML IV ONE (07:41)
[2017-11-13] MEDS ORDERED: VASOPRESSIN 20 UNITS/ML VIAL ONE (08:14)
[2017-11-13] MEDS ORDERED: BUPIVACAINE HCL PF 0.25% 30 ML VIAL ONE (09:34)
[2017-11-13] MEDS ORDERED: MORPHINE SULFATE 4 MG/ML INJ IV PUSH PRN (10:15)
[2017-11-13] MEDS ORDERED: SODIUM CHLORIDE 0.9% FLUSH 10 ML FLUSH IV FLUSH SCH (10:15)
[2017-11-13] MEDS ORDERED: diphenhydrAMINE HCL 25 MG CAP PO PRN (10:15)
[2017-11-13] MEDS ORDERED: SODIUM CHLORIDE 0.9% FLUSH 10 ML FLUSH IV FLUSH PRN (10:15)
[2017-11-13] MEDS ORDERED: ZOLPIDEM TARTRATE 5 MG TAB PO PRN (10:15)
[2017-11-13] MEDS ORDERED: oxyCODONE/ACETAMINOPHEN 5 MG/325 MG TAB PO PRN (10:15)
[2017-11-13] MEDS ORDERED: LORazepam 0.5 MG TAB PO PRN (10:15)
[2017-11-13] MEDS ORDERED: ONDANSETRON HCL 4 MG/2 ML VIAL IVP PRN (10:15)
[2017-11-13] MEDS ORDERED: KETOROLAC TROMETHAMINE 30 MG/ML (IVP) VIAL IVP PRN (10:15)
[2017-11-13] MEDS ORDERED: DO NOT ADM ANY ANTICOAGULANT DRUGS PRN (10:20)
[2017-11-13] MEDS ORDERED: MIDAZOLAM HCL 2 MG/2 ML VIAL ONE (10:31)
[2017-11-13] MEDS ORDERED: *morphine SULFATE 10 MG/ML PERIprocedure ONLY ONE (10:36)
[2017-11-13] MEDS: LACTATED RINGER'S 1000 ML INJ 1,000 ML IV SCH ×2 (11:20→18:08)
[2017-11-13 11:35] VITALS: BP 112/65; PULSE 88; RESP 16; TEMP 97.6; O2SAT 98
[2017-11-13 11:48] LABS: HEMATOCRIT 31.5 % (35.0-46.0); HEMOGLOBIN 9.8 GM/DL (11.6-15.3)
--- NOTE | 2017-11-13 11:49 | MP ---
cc: NILO RODRÍGUEZ M.D. DATE OF SURGERY: 11/13/2017 PREOPERATIVE DIAGNOSIS Patient with symptomatic large uterine fibroid, history of menorrhagia and anemia associated with chronic blood loss. PROCEDURE Exam under anesthesia, laparotomy, single myomectomy. POSTOPERATIVE DIAGNOSIS Patient with symptomatic large uterine fibroid, history of menorrhagia and anemia associated with chronic blood loss. SURGEON Nilo Rodríguez MD ANESTHESIA General with endotracheal tube. ESTIMATED BLOOD LOSS 350 ccs. DRAINS Jack to gravity. OPERATIVE FINDINGS The patient had a large solitary fundal myoma. Both ovaries and fallopian tubes and pelvis appeared normal otherwise. The myoma was fundal. The very superficial posterior wall of the endometrial cavity was identified and was not opened during the procedure. INDICATIONS FOR PROCEDURE Patient with chronic heavy menstrual bleeding with a known uterine fibroid. Options were discussed. The patient elected for myomectomy. Risks, benefits, complication and recurrence of fibroids were reviewed. The consent was signed. The patient received Ancef 2 grams prophylactically. DESCRIPTION OF PROCEDURE The patient was taken to the operative suite in stable condition and underwent general anesthesia with endotracheal intubation. She was carefully positioned in supine position. She had sequentials placed on lower extremities for VTE prophylaxis. Jack was inserted by sterile technique. After she was prepped and draped time-out was conducted and agreed by all present in the room. Exam previously revealed the fibroid which was approximately 16 weeks in size on the pelvic exam. A transverse incision was made using a Pfannenstiel type incision using a #10 blade carrying it through the skin down through the subcutaneous layer, identifying the fascia including the fascia from the subcutaneous tissue and then extending the incision laterally by sharp dissection. Any active bleeding was cauterized with the Bovie. The fascia was then dissected from the muscle. The muscle was in the midline. The peritoneum was identified and opened sharply. The self-retaining retractor was placed. Visualization of the uterus and the fundus was made. A dilute solution of Pitressin using 1 amp and 50 ccs of normal saline, approximately 20 ccs of that concentration was injected in the fundus with moderate amount of blanching identified. A transverse incision was made on the superior surface of the uterus. This was carried through the myometrium down to the fibroid. The fibroid was then grasped with a Belle clamp and then dissection of the myometrium away from the fibroid was made by combination of sharp dissection and electrocautery using both cutting and coag. Resection of the myoma was uncomplicated. The incision was not actively bleeding at the closure of the case. The closure of the defect after the tumor was removed was made in multiple layers using a 2-0 Monocryl suture. The myometrium was reapproximated to the serosal surface. Once this was closed the serosal surface was then closed with a running locking suture of 3-0 Monocryl. Good result was noted, no hematoma, no active bleeding. Pelvis was irrigated. The confirmation of hemostasis was made and then Interceed as an adhesion barrier was placed over the suture aspect of the uterine fundus. The retractors were removed. A full count was made and correct. The peritoneum was then reapproximated and closed with running suture of 2-0 Monocryl. The fascia was then closed with 0 Vicryl in a simple running fashion. The subcutaneous layer was irrigated. Any active bleeding was cauterized and then the space was closed with a running suture of 2-0 Monocryl. A 4-0 Monocryl was used to close the skin in a subcuticular fashion and Steri-Strips were applied to the incision. A dressing was applied. The patient was stable. Full and final count was correct and the patient was taken to the recovery room on room air. MD MIGUEL Durham/TLL /10:12 AM /11:12 AM
[2017-11-13] MEDS ORDERED: GLYCOPYRROLATE 1 MG/5 ML SYRINGE IV PUSH ONE (12:00)
[2017-11-13] MEDS ORDERED: KETOROLAC TROMETHAMINE 30 MG/ML (IVP) VIAL IV PUSH ONE (12:00)
[2017-11-13] MEDS ORDERED: ROCURONIUM INJ 50 MG/5 ML SYRINGE IV PUSH ONE (12:00)
[2017-11-13] MEDS ORDERED: PROPOFOL 200 MG/20 ML AMP IV ONE (12:00)
[2017-11-13] MEDS ORDERED: LACTATED RINGER'S 1000 ML INJ 1,000 ML IV ONE (12:00)
[2017-11-13] MEDS ORDERED: ONDANSETRON HCL 4 MG/2 ML VIAL IV ONE (12:00)
[2017-11-13] MEDS ORDERED: NEOSTIGMINE 5 MG/5 ML SYRINGE IV PUSH ONE (12:00)
[2017-11-13] MEDS ORDERED: LIDOCAINE HCL 1% PF 5 ML SYRINGE OTHER ONE (12:00)
[2017-11-13] MEDS ORDERED: DEXAMETHASONE SOD PHOS 4 MG/ML VIAL IV ONE (12:00)
[2017-11-13 15:00] VITALS: BP 114/57; PULSE 77; RESP 16; TEMP 98.9; O2SAT 98
[2017-11-13] MEDS: oxyCODONE/ACETAMINOPHEN 5 MG/325 MG TAB PO PRN (17:57)
[2017-11-13 20:30] VITALS: BP 112/60; PULSE 76; RESP 16; TEMP 98.7; O2SAT 98
[2017-11-13 23:30] VITALS: BP 123/63; PULSE 75; RESP 18; TEMP 98.9; O2SAT 99
[2017-11-14 04:42] VITALS: BP 114/72; PULSE 86; RESP 18; TEMP 98.2; O2SAT 98
[2017-11-14 05:54] LABS: AUTOMATED NEUTROPHIL # 6.7 TH/MM3 (1.8-7.7); BASOPHIL % 0.1 % (0.0-2.0); EOSINOPHIL % 0.2 % (0.0-4.0); HEMATOCRIT 30.1 % (35.0-46.0); HEMOGLOBIN 9.6 GM/DL (11.6-15.3); LYMPH % 16.3 % (9.0-44.0); LYMPHOCYTE # 1.5 TH/MM3 (1.0-4.8); MEAN CORPUSCULAR HEMOGLOBIN 22.7 PG (27.0-34.0); MEAN CORPUSCULAR HGB CONC 31.9 % (32.0-36.0); MEAN PLATELET VOLUME 8.2 FL (7.0-11.0); MONO % 10.5 % (0.0-8.0); NEUT % 72.9 % (16.0-70.0); PLATELET COUNT 308 TH/MM3 (150-450); RED BLOOD COUNT 4.24 MIL/MM3 (4.00-5.30); RED CELL DISTRIBUTION WIDTH 15.2 % (11.6-17.2); WHITE BLOOD COUNT 9.2 TH/MM3 (4.0-11.0)
[2017-11-14] MEDS: IBUPROFEN 600 MG TAB PO PRN ×2 (06:40→18:00)
[2017-11-14] MEDS: oxyCODONE/ACETAMINOPHEN 5 MG/325 MG TAB PO PRN ×2 (06:41→18:00)
[2017-11-14 08:00] VITALS: BP 102/76; PULSE 109; RESP 18; TEMP 97.9
--- NOTE | 2017-11-14 10:03 | HHI.PR ---
Subjective Remarks POD#1, open myomectomy; c/o "gas pain' ,comes and goes but NO significant abd. pain,,no bleeding, no F/c/n/v; pain is well controlled with oral meds., voiding on her own. eating well. Objective Vital Signs Vital Signs Date Time Temp Pulse Resp B/P (MAP) Pulse Ox O2 Delivery O2 Flow Rate FiO2 11/14/17 04:42 98.2 86 18 114/72 (86) 98 11/13/17 23:30 98.9 75 18 123/63 (83) 99 11/13/17 20:30 98.7 76 16 112/60 (77) 98 11/13/17 15:00 98.9 77 16 114/57 (76) 98 11/13/17 11:35 97.6 88 16 112/65 (81) 98 11/13/17 11:35 97.6 88 16 112/65 (81) 98 11/13/17 11:20 77 16 96 Room Air 11/13/17 11:15 97.8 79 16 120/61 (80) 95 Room Air 11/13/17 11:00 81 16 122/57 (78) 97 Nasal Cannula 2 11/13/17 10:45 78 15 124/58 (80) 96 Nasal Cannula 2 11/13/17 10:41 15 11/13/17 10:30 76 15 119/56 (77) 95 Nasal Cannula 2 11/13/17 10:20 97.7 73 17 119/60 (79) 100 Nasal Cannula 3 I/O 11/13/17 11/13/17 11/13/17 11/14/17 11/14/17 11/14/17 07:00 15:00 23:00 07:00 15:00 23:00 Intake Total 1500 ml 480 ml Output Total 710 ml 1200 ml 1850 ml Balance 790 ml -1200 ml -1370 ml Intake Oral 480 ml IV Total 1500 ml Output Urine Total 360 ml 1200 ml 1850 ml Estimated Blood Loss 350 ml Result Diagram: 11/14/17 0538 11/13/17 0650 Objective Remarks Chest is clear, regular rate and rhythm. Abdomen is soft and non-distended. Incision is clean and dry. Ext no CCE. A/P Assessment and Plan Post Op Day 1 stable, Pain is controlled, encouraged to ambulate to resolve gas pain, Hgb. is stable, no active bleeding. discussed discharge tomorrow if pain is manageable. Nilo Benavidez MD Nov 14, 2017 10:02
--- NOTE | 2017-11-14 10:04 | HHI.DCPOC ---
Discharge Care Plan Your Health Problems Are: Abdominal pain Fever, temperature>100.4 Incisions/drains Pelvic pain Vaginal bleeding Urinary difficulties Report Symptoms to Your Doctor -Temperature above 100.5 degrees -Redness, of incision or excessive or foul smelling drainage -Unusual pain or calf pain -Increased vaginal bleeding -Painful or difficulty urinating -Feelings of extreme sadness or anxiety after 2 weeks Goals to Promote Your Health * To prevent worsening of your condition and complications * To maintain your health at the optimal level Directions to Meet Your Goals Take your medications as prescribed Follow your dietary instruction Follow activity as directed Ensure plenty of rest for recovery Drink fluids for hydration Keep your appointments as scheduled Take your immunizations and boosters as scheduled If your symptoms worsen call your PCP, if no PCP go to Urgent Care Center or Emergency Room Smoking is Dangerous to Your Health. Avoid second hand smoke Call the 24-hour crisis hotline for domestic abuse at Nilo Benavidez MD Nov 14, 2017 10:04
[2017-11-14 12:00] VITALS: BP 101/52; PULSE 84; RESP 18; TEMP 98
[2017-11-14] MEDS ORDERED: SIMETHICONE 80 MG CHEWABLE TAB CHEW PRN (13:30)
[2017-11-14 17:29] VITALS: BP 126/66; PULSE 91; RESP 18; TEMP 98.4
[2017-11-14 21:30] VITALS: BP 115/64; PULSE 85; RESP 18; TEMP 98.4
[2017-11-15 04:30] VITALS: BP 122/69; PULSE 97; RESP 18; TEMP 99.3; O2SAT 100
[2017-11-15] MEDS: IBUPROFEN 600 MG TAB PO PRN (05:24)
[2017-11-15 08:48] VITALS: BP 114/66; PULSE 84; RESP 18; TEMP 97.8; O2SAT 95
== END 2017-11-15 10:03 | disposition home or self-care (01) | DRG 743 ==
LOC: EDSTATUS 08:00 → HSDI 11-13 05:21 → EDSTATUS 11-13 08:00 → H1EA 11-13 11:37
PROVIDERS: ADMIT Obstetrics & Gynecology; ATTEND Obstetrics & Gynecology
PROC: 0UB90ZZ Excision of Uterus, Open Approach (ICD-10-PCS; principal; 2017-11-13 07:41)
DX: D25.9 Leiomyoma of uterus, unspecified (principal); D50.0 Iron deficiency anemia secondary to blood loss (chronic); N92.0 Excessive and frequent menstruation with regular cycle
CPT/HCPCS: 76937; 80048; 81001; 84703; 85014; 85018; 85025; 86850; 86900; 86901; 88305; 94150; C1765; J0131; J1100; J1885; J2250; J2270; J2405; J2710; J3010; J7120; J8501